=== PATIENT | male | born 1980 | race Caucasian/White ===

== ENCOUNTER 2021-08-22 17:18 | Emergency (ER) | payer SELFPAY ==
[~2021-08-22] VITALS: Ht 170 cm; Wt 86.1 kg
[2021-08-22 17:28] VITALS: BP 157/106
[2021-08-22] MEDS ORDERED: HYDROcodone/APAP 5 MG/325 MG (LORTAB) TAB PO ONE (17:30)
--- NOTE | 2021-08-22 17:36 | ED GU-Female ---
General Chief Complaint: - Reproductive Stated Complaint: TESTICLE PAIN COVID + Source: patient Exam Limitations: no limitations (RASHID HURTS APRN) History of Present Illness Date Seen by Provider: Aug 22, 2021 Time Seen by Provider: 17:35 Initial Comments To ER with left testicle pain onset noon today that started mild and got progressively worse. He is Covid 2 as of 2 days ago. Denies any dysuria. No history of this takes no medications otherwise healthy. Timing/Duration: constant Severity/Quality: moderate Location: groin Radiation: none Activities at Onset: none Prior Genitourinary Problems: none Sexual [place] History: not active Associated Symptoms: denies symptoms (RASHID HURST APRN) Allergies and Home Medications Allergies Coded Allergies: No Known Drug Allergies (Unverified , 08/22/21) Patient Home Medication List Home Medication List Reviewed: Yes (RASHID HURST APRN) Review of Systems Review of Systems Constitutional: see HPI; No chills, No fever; malaise EENTM: see HPI Respiratory: no symptoms reported Cardiovascular: no symptoms reported Genitourinary: see HPI, pain Musculoskeletal: no symptoms reported Skin: no symptoms reported Psychiatric/Neurological: No Symptoms Reported Endocrine: No Symptoms Reported Hematologic/Lymphatic: No Symptoms Reported (RASHID HURST APRN) Physical Exam Vital Signs Vital Signs - First Documented 08/22/21 17:28 Temp 37.2 Pulse 83 Resp 14 B/P (MAP) 157/106 (123) Pulse Ox 97 O2 Delivery Room Air (MEI RIOJAS MD) Vital Signs Capillary Refill : (RASHID HURST APRN) Height, Weight, BMI Height: '" Weight: lbs. oz. kg; BMI Method: General Appearance: WD/WN, no apparent distress HEENT: PERRL/EOMI, normal ENT inspection Respiratory: no respiratory distress, no accessory muscle use Gastrointestinal: normal bowel sounds, non tender, soft Genital/Rectal: other (Testicles are in a normal vertical lie bilaterally with a positive cremasteric reflex on the left. He is tender to palpation to the posterior aspect of the testicle which does not appear to be enlarged. The overlying skin on the scrotum is normal in appearance.) Extremities: normal range of motion, normal inspection Neurologic/Psychiatric: alert, normal mood/affect, oriented x 3 Skin: normal color (RASHID HURST APRN) Progress/Results/Core Measures Suspected Sepsis SIRS Temperature: Pulse: Respiratory Rate: Blood Pressure / Mean: (RASHID HURST APRN) Results/Orders Vital Signs/I&O Capillary Refill : (RASHID HURST APRN) Departure Communication (Admissions) [id number]-patient is nowhere to be found. I called his phone number, female answered and she tells us that "he left", presumably meaning that he left the hospital as he was not in the triage room where we left him. We did very clearly state that we would call in the nail tech to evaluate his testicles. (RASHID HURST APRN) Impression Primary Impression: Testicle pain Disposition: AGAINST MEDICAL ADVICE Condition: Against Medical Advice ATTENDING PHYSICIAN NOTE: I was physically present as attending physician in the emergency department during the care of this patient, but I was not directly involved in the decision making or delivery of care for this patient. (MEI RIOJAS MD) RASHID HURST APRN Aug 22, 2021 17:36 MEI RIOJAS MD Aug 24, 2021 06:24
== END 2021-08-22 18:04 | disposition left against medical advice (07) ==
LOC: ER 17:23
DX: N50.812 Left testicular pain (principal)
CPT/HCPCS: 99281